=== PATIENT | female | born 1995 | race Hispanic/Latino ===

== ENCOUNTER 2022-04-23 19:12 | Inpatient (IN) | payer MEDICAID ==
[~2022-04-23] VITALS: Ht 162.6 cm; Wt 125.6 kg
[2022-04-23] MEDS ORDERED: LACTATED RINGERS 500 ML 500 ML IV PRN (19:30)
[2022-04-23] MEDS ORDERED: EPHEDRINE SULFATE 50 MG/ML AMPULE IVP PRN (19:30)
[2022-04-23] MEDS ORDERED: MEPERIDINE-PF 50 MG/ML SYG IVP PRN (19:30)
[2022-04-23] MEDS ORDERED: NALOXONE HCL 0.4 MG/1 ML ML IV PRN (19:30)
[2022-04-23] MEDS ORDERED: ROPIVACAINE 0.2% 100ML VIAL 100 ML EP PRN (19:30)
[2022-04-23] MEDS ORDERED: OXYTOCIN-LR 20 UNITS/1000 ML 1,000 ML IV SCH (19:30)
[2022-04-23] MEDS ORDERED: PROMETHAZINE HCL 25 MG/ML 1ML AMPULE IM PRN (19:30)
[2022-04-23] MEDS ORDERED: VANCOMYCIN 1G VIAL IVPB SCH (20:00)
[2022-04-23] MEDS ORDERED: DINOPROSTONE 10 MG VAGINAL SUPP VG ONE (20:45)
[2022-04-23 21:26] LABS: HEMATOCRIT 36.5 % (36-48); MEAN CORPUSCULAR HEMOGLOBIN 29.5 pg (27.0-33.0); MEAN CORPUSCULAR VOLUME 86.7 fL (79-99); RED BLOOD CELL COUNT(AUTO) 4.21 MIL/uL (4.00-5.50); RED CELL DISTRIBUTION WIDTH 12.9 % (11.0-15.5); WHITE BLOOD COUNT (AUTO) 5.6 K/uL (4.8-10.8)
[2022-04-23 21:27] LABS: APPEARANCE,URINE SL CLOUDY (CLEAR); BILIRUBIN,URINE NEGATIVE (NEGATIVE); COLOR,URINE YELLOW (YELLOW); GLUCOSE, URINE (UA) NEGATIVE (NEGATIVE); KETONES,URINE NEGATIVE (NEGATIVE); LEUKOCYTE ESTERASE ,URINE TRACE (NEGATIVE); NITRATE,URINE NEGATIVE (NEGATIVE); OCCULT BLOOD,URINE TRACE-INTACT (NEGATIVE); PH,URINE 6.5 (5.0-8.0); PROTEIN,URINE TRACE mg/dL (NEGATIVE); UROBILINOGEN,URINE 0.2 mg/dL (0.2-1.0)
[2022-04-23] MEDS ORDERED: 0.9% NACL 250ML 250 ML IV SCH (21:30)
[2022-04-23 21:33] LABS: BACTERIA,URINE Few /HPF (None Seen)
[2022-04-23 21:34] LABS: SQUAMOUS EPITHELIAL CELL,UR Moderate /HPF (0-2)
[2022-04-23] MEDS ORDERED: [UNRECOGNIZED DRUG - REMARK] MISC SCH (22:00)
[2022-04-23] MEDS ORDERED: LABETALOL 20MG SYG IV ONE (22:27)
[2022-04-23 22:48] LABS: CREATININE 0.6 mg/dL (0.5-1.5); POTASSIUM 3.9 mmol/L (3.5-5.1)
[2022-04-23 22:52] LABS: ALBUMIN 2.8 g/dL (3.5-5.0); TOTAL PROTEIN, SERUM 6.6 g/dL (6.0-8.3); URIC ACID 4.1 mg/dL (2.6-7.2)
[2022-04-23 22:54] LABS: INR 0.93 (0.85-1.15); PROTHROMBIN TIME 9.8 SEC (9.6-11.6)
[2022-04-23 22:55] LABS: PARTIAL THROMBOPLASTIN TIME 28.4 SEC (26.3-35.5)
[2022-04-23] MEDS: LACTATED RINGERS 1000ML 1,000 ML IV PRN (23:55)
[2022-04-23] MEDS ORDERED: GLYB2.5T6 PO (23:56)
[2022-04-23 23:57] VITALS: BP 134/83
[2022-04-24] MEDS: LACTATED RINGERS 1000ML 1,000 ML IV PRN ×2 (06:43→15:21)
[2022-04-24] MEDS ORDERED: VANCOMYCIN 1G/250ML KIT 250 ML IV SCH (07:00)
[2022-04-24] MEDS: LABETALOL 20MG VIAL IV PRN ×4 (08:19→10:57)
[2022-04-24] MEDS: CLINDAMYCIN IVPB 900MG/50ML 50 ML IV SCH ×2 (08:19→15:47)
[2022-04-24] MEDS ORDERED: OXYTOCIN-LR 20 UNITS/1000 ML 1,000 ML IV SCH (09:00)
[2022-04-24] MEDS ORDERED: LABETALOL 20MG VIAL IV ONE (10:55)
[2022-04-24] MEDS ORDERED: CITRIC ACID/SODIUM CITRATE 30 ML UDCUP PO PRN (15:30)
[2022-04-24] MEDS ORDERED: CLINDAMYCIN IVPB 900MG/50ML 50 ML IV PRN (15:30)
[2022-04-24] MEDS ORDERED: GENTAMICIN SULFATE 240 MG in 0.9%NACL 100ML 100 ML IV PRN (15:30)
[2022-04-24] MEDS ORDERED: EPINEPHRINE PF 1MG (1:1,000) 1 MG/ML AMP ONE (16:15)
[2022-04-24] MEDS ORDERED: ONDANSETRON 4MG INJ ONE (16:15)
[2022-04-24] MEDS ORDERED: MORPHINE PF 100MG/10ML AMP IV ONE (16:15)
[2022-04-24] MEDS ORDERED: GLYCOPYRROLATE 1 MG/5 ML SYRINGE ONE (16:30)
[2022-04-24 19:55] VITALS: BP 124/75
[2022-04-24] MEDS ORDERED: OXYTOCIN-LR 20 UNITS/1000 ML 1,000 ML IV PRN (20:00)
[2022-04-24] MEDS ORDERED: 0.9%NACL 10ML VIAL IVP PRN (20:00)
[2022-04-24] MEDS ORDERED: LORATADINE 10 MG TABLET PO PRN (20:00)
[2022-04-24] MEDS ORDERED: PROMETHAZINE HCL 25 MG/ML 1ML AMPULE IM PRN (20:00)
[2022-04-24] MEDS ORDERED: MEPERIDINE-PF 75 MG/ML SYG IM PRN (20:00)
[2022-04-24] MEDS ORDERED: PNV1CAPS PO (21:33)
[2022-04-24 23:26] VITALS: BP 125/84
[2022-04-25] MEDS ORDERED: ACETAMINOPHEN 500 MG TABLET PO PRN (03:30)
[2022-04-25] MEDS ORDERED: SIMETHICONE 80 MG TAB.CHEW PO PRN (03:30)
[2022-04-25] MEDS ORDERED: HYDROCODONE/ACETAMINOPHEN 5/325 MG TAB PO PRN (03:30)
[2022-04-25] MEDS ORDERED: LANOLIN 30GM OINTMENT TP PRN (03:30)
[2022-04-25] MEDS ORDERED: ACETAMINOPHEN WITH CODEINE 1 TAB TAB PO PRN (03:30)
[2022-04-25] MEDS ORDERED: BISACODYL 10 MG SUPP.RECT RC PRN (03:30)
[2022-04-25] MEDS: CLINDAMYCIN IVPB 900MG/50ML 50 ML IV SCH ×2 (03:50→15:51)
[2022-04-25 04:00] VITALS: BP 114/58
[2022-04-25 06:18] LABS: HEMATOCRIT 30.4 % (36-48); MEAN CORPUSCULAR HEMOGLOBIN 29.6 pg (27.0-33.0); MEAN CORPUSCULAR HGB CONC 33.9 g/dL (32.0-36.0); MEAN CORPUSCULAR VOLUME 87.4 fL (79-99); RED BLOOD CELL COUNT(AUTO) 3.48 MIL/uL (4.00-5.50); WHITE BLOOD COUNT (AUTO) 5.9 K/uL (4.8-10.8)
[2022-04-25] MEDS ORDERED: 0.9%NACL 1000ML 1,000 ML IV SCH (06:30)
[2022-04-25 07:30] VITALS: BP 112/67
[2022-04-25] MEDS: IBUPROFEN 600 MG TABLET PO PRN ×2 (08:39→16:48)
[2022-04-25] MEDS ORDERED: DOCUSATE SODIUM 100 MG CAP PO SCH (09:00)
[2022-04-25 10:13] LABS: HEPATITIS Bs ANTIGEN SCREEN P Negative (Negative)
[2022-04-25 11:49] VITALS: BP 112/64
[2022-04-25 15:57] VITALS: BP 119/63
[2022-04-25] MEDS ORDERED: ACET-2079 PO (16:04)
== END 2022-04-25 19:20 | disposition home or self-care (01) | DRG 540 ==
LOC: LDH 19:12 → WSH 04-24 19:55
PROVIDERS: ADMIT Obstetrics & Gynecology; ATTEND Obstetrics & Gynecology
PROC: 10D00Z1 Extraction of Products of Conception, Low, Open Approach (ICD-10-PCS; principal; 2022-04-24 16:30)
DX: O62.2 Other uterine inertia (principal); O24.92 Unspecified diabetes mellitus in childbirth; O99.214 Obesity complicating childbirth; O66.2 Obstructed labor due to unusually large fetus; O99.824 Streptococcus B carrier state complicating childbirth; O13.4 Gestational [pregnancy-induced] hypertension without significant proteinuria, complicating childbirth; E66.01 Morbid (severe) obesity due to excess calories; Z37.0 Single live birth; Z3A.37 37 weeks gestation of pregnancy
CPT/HCPCS: 36415; 59510; 80053; 81001; 82947; 83615; 84550; 85027; 85384; 85610; 85730; 86592; 86705; 86709; 86850; 86900; 86901; 87088; 87340; A4344; G0378; J0171; J2175; J2274; J2405; J2550; J2590; J3490; J7030; J7120

== ENCOUNTER 2022-04-27 15:20 | Emergency (ER) | payer MEDICAID ==
[~2022-04-27] VITALS: Ht 162.6 cm; Wt 124.3 kg
[~2022-04-27 15:20] MED LIST: ACET-2079 PO; PNV1CAPS PO
[2022-04-27 15:21] VITALS: BP 169/105
== END 2022-04-27 15:46 | disposition left against medical advice (07) ==
LOC: EDH 15:20
DX: Z48.01 Encounter for change or removal of surgical wound dressing (principal); Z53.21 Procedure and treatment not carried out due to patient leaving prior to being seen by health care provider

== ENCOUNTER 2022-08-31 17:29 | Emergency (ER) | payer MEDICAID, OTHER ==
[~2022-08-31] VITALS: Ht 167.6 cm; Wt 86.2 kg
[2022-08-31] MEDS ORDERED: KETOROLAC 30MG VIAL (30MG/ML) IM ONE (18:30)
[2022-08-31] MEDS ORDERED: IBUP-2070 PO (19:05)
[2022-08-31 19:09] VITALS: BP 147/81
== END 2022-08-31 19:21 | disposition home or self-care (01) ==
LOC: EDH 17:29
DX: S29.8XXA Other specified injuries of thorax, initial encounter (principal); Z88.0 Allergy status to penicillin; V89.2XXA Person injured in unspecified motor-vehicle accident, traffic, initial encounter; Y93.19 Activity, other involving water and watercraft; Y92.410 Unspecified street and highway as the place of occurrence of the external cause; Y99.8 Other external cause status
CPT/HCPCS: 99283; 71101; 96372; 93005; J1885

== ENCOUNTER 2022-09-11 09:15 | Emergency (ER) | payer OTHER, MEDICAID ==
[~2022-09-11] VITALS: Ht 162.6 cm; Wt 123.8 kg
[~2022-09-11 09:15] MED LIST changes: +IBUP-2070 PO
[2022-09-11 09:19] VITALS: BP 133/99
[2022-09-11] MEDS ORDERED: NAPR-1196 PO (10:51)
== END 2022-09-11 10:56 | disposition home or self-care (01) ==
LOC: EDH 09:15
DX: M94.0 Chondrocostal junction syndrome [Tietze] (principal); E11.9 Type 2 diabetes mellitus without complications; Z90.49 Acquired absence of other specified parts of digestive tract; Z79.1 Long term (current) use of non-steroidal anti-inflammatories (NSAID); Z88.0 Allergy status to penicillin; Z79.899 Other long term (current) drug therapy; V89.2XXA Person injured in unspecified motor-vehicle accident, traffic, initial encounter; Y93.89 Activity, other specified; Y92.89 Other specified places as the place of occurrence of the external cause; Y99.8 Other external cause status
CPT/HCPCS: 71045; 93005